=== PATIENT | female | born 1950 | race Caucasian/White ===

== ENCOUNTER 2017-06-12 15:28 | Outpatient (CLI) | payer BC ==
--- NOTE | 2017-06-12 17:03 | MRI ---
LEFT SHOULDER MRI WITH IV CONTRAST 06/12/17 HISTORY: 66-year-old female with left shoulder pain after lifting heavy books in December 2016. Multiplanar and multisequence MRI examination of the left shoulder demonstrates mild AC joint arthros is. There is some irregular high signal within the supraspinatus tendon at the level of the magic ang le consistent with at least a mid grade partial thickness undersurface and minimally delaminating tea r. No complete full thickness retracted tear. Subscapularis tendinopathy is noted. Biceps tendon appe ars intact. There is some blunting and indistinction of the superior and superior posterior labrum co nsistent with some fraying or degenerative tear. Several areas of irregular cartilage loss involving the glenoid centrally and inferiorly and some glenohumeral joint arthropathy changes. IMPRESSION: Partial thickness undersurface and minimally delaminating tear of the supraspinatus. Subscapularis te ndinopathy. Blunting and some irregularity of the superior and posterior superior labrum evidence for degenerative tear and/or fraying. Rotator cuff muscles are within normal limits of signal and volume . Several areas of glenoid cartilage loss centrally and inferiorly with some glenohumeral joint arthr opathy changes. POS: MALISSA
== END 2017-06-12 15:29 | disposition home or self-care (01) ==
LOC: TBSIIMAG 15:28
PROVIDERS: ATTEND Family Medicine
DX: G89.29 Other chronic pain (principal); M75.102 Unspecified rotator cuff tear or rupture of left shoulder, not specified as traumatic

== ENCOUNTER 2018-01-21 13:41 | Outpatient (CLI) | payer BC | END 2018-01-21 13:42 | disposition home or self-care (01) | LOC: BICMAMMO 13:41 | PROVIDERS: ATTEND Family Medicine | DX: Z13.820 Encounter for screening for osteoporosis (principal); M85.89 Other specified disorders of bone density and structure, multiple sites | CPT/HCPCS: 77080 ==

== ENCOUNTER 2019-01-20 09:49 | Outpatient (CLI) | payer BC ==
--- NOTE | 2019-02-17 15:21 | MMO ---
Bilateral MAMMO Bilat Screen [facility]. CLINICAL HISTORY: Patient is 68 years old and is seen for screening. The patient has the following family history of breast cancer: maternal grandmother, malignant (generic). The patient has no personal history of cancer. VIEWS: The views performed were: bilateral craniocaudal with tomosynthesis and bilateral mediolateral oblique with tomosynthesis. FILMS COMPARED: The present examination has been compared to prior imaging studies performed at [facility] on 05/01/2013, 07/21/2015 and 12/19/2016. MAMMOGRAM FINDINGS: There are scattered fibroglandular densities. There are no suspicious masses, calcifications or areas of architectural distortion. There are benign appearing calcifications in both breasts. There are no suspicious masses, suspicious calcifications, or new areas of architectural distortion. IMPRESSION: THERE IS NO MAMMOGRAPHIC EVIDENCE OF MALIGNANCY. A ROUTINE FOLLOW-UP MAMMOGRAM IN 1 YEAR IS RECOMMENDED. THE RESULTS OF THIS EXAM WERE SENT TO THE PATIENT. ACR BI-RADS Category 2 - Benign finding MAMMOGRAPHY NOTE: 1. A negative mammogram report should not delay a biopsy if a dominant of clinically suspicious mass is present. 2. Approximately 10% to 15% of breast cancers are not detected by mammography. 3. Adenosis and dense breasts may obscure an underlying neoplasm. Reported by: GOPI STILES MD Electonically Signed: [id number]
== END 2019-01-20 09:50 | disposition home or self-care (01) ==
LOC: BICMAMMO 09:49
PROVIDERS: ATTEND Family Medicine
DX: Z12.31 Encounter for screening mammogram for malignant neoplasm of breast (principal); Z80.3 Family history of malignant neoplasm of breast
CPT/HCPCS: 77063; 77067